=== PATIENT | male | born 1995 ===

== ENCOUNTER → 2022-04-27 | Outpatient (CLI) | payer OTHER ==
--- NOTE | 2022-04-27 11:03 | Diagnostic Imaging Report ---
Indication: Positive TB skin test PA chest 8:33 AM Heart and mediastinum are normal. Lungs are clear. There are no effusions or pneumothoraces. IMPRESSION: No acute abnormalities in the chest Dictated by: Dictated on workstation # [id number]
== END ==
LOC: RAD 08:21
PROVIDERS: ATTEND Nurse Practitioner Family
DX: R76.11 Nonspecific reaction to tuberculin skin test without active tuberculosis (principal)
CPT/HCPCS: 71045